=== PATIENT | female | born 1965 | race Caucasian/White ===

== ENCOUNTER 2020-04-09 15:30 | Emergency (ER) | payer SELFPAY ==
[~2020-04-09] VITALS: Ht 160 cm; Wt 68.0 kg
[~2020-04-09 15:30] MED LIST: CLNZ.5T PO; CPR500T PO; ESTR0.3T PO; HYDR1TAB PO; METR500T PO; PROG100C6 PO; SERT50TA PO
--- NOTE | 2020-04-09 15:52 | ED Neurological Problem ---
General Chief Complaint: Neuro-Stroke Like Symptoms Stated Complaint: R ARM NUMBESS History of Present Illness Date Seen by Provider: Apr 09, 2020 Time Seen by Provider: 15:30 Initial Comments 54 year old female presents for parasthesias in her right arm, isolated to right thumb and index finger today. Presents to "find out if I had a stroke" She reports 5 days ago, she had chest pain with nausea, she went to bed and when she woke up, her right arm was numb. It has progressively gotten better. She denies facial drooping or weakness in her LEs. 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 She is morphine dependent and is without insurance at the present time so buys it on the street or from friends. No hx of CAD or other chronic health problems. Timing/Duration: other (5 days) Severity: mild Associated Symptoms: denies symptoms; No confusion, No loss of consciousness, No nausea/vomiting; paresthesia (right thumb and index finger); No slurred speech, No tingling in legs/feet, No trouble walking, No weakness Allergies and Home Medications Allergies Coded Allergies: No Known Drug Allergies (Unverified , 04/09/20) Home Medications Levothyroxine Sodium 150 Mcg Tablet, 150 MCG PO DAILY Prescribed by: TRACY SAVAGE on 04/09/20 4666 Patient Home Medication List Home Medication List Reviewed: Yes Review of Systems Review of Systems Constitutional: no symptoms reported, see HPI : No (hysterectomy) Musculoskeletal: no symptoms reported, see HPI Psychiatric/Neurological: No Symptoms Reported, See HPI All Other Systems Reviewed Negative Unless Noted: Yes Past Xdxslkk-Yszitk-Gsimdv Hx Past Med/Social Hx: Reviewed and Corrections made Patient Social History Recent Foreign Travel: No Contact w/Someone Who Travel: No Past Medical History Endocrine: Yes Hyperthyroidism Physical Exam Vital Signs Vital Signs - First Documented 04/09/20 04/09/20 15:39 18:00 Temp 36.2 Pulse 93 Resp 18 B/P (MAP) 149/83 (105) Pulse Ox 98 O2 Delivery Room Air Capillary Refill : Height, Weight, BMI Height: '" Weight: lbs. oz. kg; BMI Method: General Appearance: WD/WN, no apparent distress, other (no facial drooping) HEENT: PERRL/EOMI, normal ENT inspection, TMs normal, pharynx normal Neck: non-tender, full range of motion, supple, normal inspection Gastrointestinal: normal bowel sounds, non tender, soft, no organomegaly Extremities: normal range of motion, non-tender, normal inspection, normal capillary refill, other (Full resisted Flex/Ext to bilat upper Ext, power V/V. Power LEs V/V. Slight decreased sensation to right thumb, but full active and passive ROM, resisted thumb power V/V. ) Neurologic/Psychiatric: casing sewer II-XII nml as tested, no motor/sensory deficits, alert, normal mood/affect, oriented x 3 Crainal Nerves: normal hearing, normal speech, PERRL; No abnormal speech, No facial asymmetry, No facial droop, No facial paresthesias, No gaze palsy, No tongue deviation to R Coordination/Gait: normal finger to nose, normal gait, negative Romberg's sign Motor/Sensory: no motor deficit, no pronator drift Skin: normal color, warm/dry NIH 0 Stroke Onset of Symptoms Date of Onset of Symptoms: Apr 04, 2020 Time of Symptom Onset: 21:00 NIH Stroke Scale Assessment Select: Initial Level of Consciousness: 0=Alert (0), Level of Consciousness- Questions: 0=Answers both month/age (0), LOC Commands: 0=Performs both tasks (0), Gaze: Normal (0), Visual [place]: 0=No visual loss (0), Facial Movement (Facial Paresis): 0=Normal symmetrical mnt (0), Motor Function-Arms Right: 0=No drift (0), Motor Function-Arms Left: 0=No drift (0), Motor Function-Legs Right: 0=No drift (0), Motor Function-Legs Left: 0=No drift (0), Limb Ataxia: 0=Absent (0), Sensory: 0=Normal:no loss (0), Best Language: 1=Mild to moderat aphasia (1), Dysarthria: 0=Normal (0), Extinction & Inattention: 0=No abnormality (0), Total: 1 Progress/Results/Core Measures Results/Orders Lab Results Laboratory Tests Test 04/09/20 15:45 04/09/20 16:27 Range/Units White Blood Count 11.5 H 4.3-11.0 10^3/uL Red Blood Count 4.89 4.35-5.85 10^6/uL Hemoglobin 13.9 11.5-16.0 G/DL Hematocrit 43 35-52 % Mean Corpuscular Volume 88 80-99 FL Mean Corpuscular Hemoglobin 28 25-34 PG Mean Corpuscular Hemoglobin Concent 33 32-36 G/DL Red Cell Distribution Width 14.7 H 10.0-14.5 % Platelet Count 485 H 130-400 10^3/uL Mean Platelet Volume 9.6 7.4-10.4 FL Neutrophils (%) (Auto) 47 42-75 % Lymphocytes (%) (Auto) 34 12-44 % Monocytes (%) (Auto) 6 0-12 % Eosinophils (%) (Auto) 12 H 0-10 % Basophils (%) (Auto) 1 0-10 % Neutrophils # (Auto) 5.4 1.8-7.8 X 10^3 Lymphocytes # (Auto) 3.9 1.0-4.0 X 10^3 Monocytes # (Auto) 0.7 0.0-1.0 X 10^3 Eosinophils # (Auto) 1.4 H 0.0-0.3 10^3/uL Basophils # (Auto) 0.1 0.0-0.1 10^3/uL Neutrophils % (Manual) 56 % Lymphocytes % (Manual) 28 % Monocytes % (Manual) 6 % Eosinophils % (Manual) 9 % Basophils % (Manual) 1 % Band Neutrophils 0 % Blood Morphology Comment NORMAL Prothrombin Time 12.0 L 12.2-14.7 SEC INR Comment 0.9 0.8-1.4 Activated Partial Thromboplast Time 30 24-35 SEC D-Dimer 0.70 H 0.00-0.49 UG/ML Sodium Level 139 135-145 MMOL/L Potassium Level 3.5 L 3.6-5.0 MMOL/L Chloride Level 104 98-107 MMOL/L Carbon Dioxide Level 23 21-32 MMOL/L Anion Gap 12 5-14 MMOL/L Blood Urea Nitrogen 14 7-18 MG/DL Creatinine 0.97 0.60-1.30 MG/DL Estimat Glomerular Filtration Rate 60 BUN/Creatinine Ratio 14 Glucose Level 99 70-105 MG/DL Calcium Level 10.1 8.5-10.1 MG/DL Corrected Calcium 8.5-10.1 MG/DL Total Bilirubin 0.2 0.1-1.0 MG/DL Aspartate Amino Transf (AST/SGOT) 24 5-34 U/L Alanine Aminotransferase (ALT/SGPT) 21 0-55 U/L Alkaline Phosphatase 102 40-136 U/L Troponin I < 0.028 <0.028 NG/ML Total Protein 9.0 H 6.4-8.2 GM/DL Albumin 4.6 H 3.2-4.5 GM/DL Free Thyroxine 0.59 L 0.70-1.48 NG/DL TSH [place] Testing 92.63 H 0.35-4.94 UIU/ML Urine Color YELLOW Urine Clarity CLEAR Urine pH 6.0 5-9 Urine Specific [place] >=1.030 1.016-1.022 Urine Protein NEGATIVE NEGATIVE Urine Glucose (UA) NEGATIVE NEGATIVE Urine Ketones NEGATIVE NEGATIVE Urine Nitrite NEGATIVE NEGATIVE Urine Bilirubin NEGATIVE NEGATIVE Urine Urobilinogen 0.2 < = 1.0 MG/DL Urine Leukocyte Esterase NEGATIVE NEGATIVE Urine RBC (Auto) NEGATIVE NEGATIVE Urine RBC NONE /HPF Urine WBC RARE /HPF Urine Squamous Epithelial Cells 2-5 /HPF Urine Crystals NONE /LPF Urine Bacteria NEGATIVE /HPF Urine Casts NONE /LPF Urine Mucus NEGATIVE /LPF Urine Culture Indicated NO Urine Opiates Screen POSITIVE H NEGATIVE Urine Oxycodone Screen POSITIVE H NEGATIVE Urine Methadone Screen NEGATIVE NEGATIVE Urine Propoxyphene Screen NEGATIVE NEGATIVE Urine Barbiturates Screen NEGATIVE NEGATIVE Ur Tricyclic Antidepressants Screen NEGATIVE NEGATIVE Urine Phencyclidine Screen NEGATIVE NEGATIVE Urine Amphetamines Screen NEGATIVE NEGATIVE Urine Methamphetamines Screen NEGATIVE NEGATIVE Urine Benzodiazepines Screen POSITIVE H NEGATIVE Urine Cocaine Screen NEGATIVE NEGATIVE Urine Cannabinoids Screen POSITIVE H NEGATIVE My Orders Orders - TRACY SAVAGE Cbc With Automated Diff (04/09/20 15:46) Protime With Inr (04/09/20 15:46) Partial Thromboplastin Time (04/09/20 15:46) Comprehensive Metabolic Panel (04/09/20 15:46) Fibrin Degradation Products (04/09/20 15:46) Troponin I (04/09/20 15:46) Ua Culture If Indicated (04/09/20 15:46) Chest 1 View, Ap/Pa Only (04/09/20 15:46) Ekg Tracing (04/09/20 15:46) Ed Iv/Invasive Line Start (04/09/20 15:46) Ed Iv/Invasive Line Start (04/09/20 15:46) Vital Signs Stroke Patient Q15M (04/09/20 15:46) Ct Head Wo-R/O Stroke (04/09/20 15:46) Monitor-Rhythm Ecg Trace Only (04/09/20 15:46) Dysphagia Screening Tool (04/09/20 15:46) Thyroid Analyzer (04/09/20 15:58) Drug Screen Stat (Urine) (04/09/20 16:04) Manual Differential (04/09/20 15:45) Free T4 (Free Thyroxine) (04/09/20 15:45) Vital Signs/I&O 04/09/20 04/09/20 15:39 18:00 Temp 36.2 36.2 Pulse 93 65 Resp 18 18 B/P (MAP) 149/83 (105) 124/65 (105) Pulse Ox 98 98 O2 Delivery Room Air Progress Progress Note : Time: 15:30 Progress Note Patient seen and evaluated. Will obtain CT, labs and re-evaluate. Encouraged patient to always seek immediate medical attention, if stroke or OR symptoms. Reviewed these with her. Even if Stroke, outside of window for interventions. 1600 CT head reviewed with patient. No acute findings. Awaiting labs. EKG normal. 1645 Troponin negative, significantly elevated TSH and low T4. No symptoms of Myxedema. Will start Synthroid and have her follow up with a PCP. Encouraged she see a PCP to obtain MAT or Rx medications, as she may not know what she is getting on the street or from friends. Discharge instructions and return precautions reviewed with the patient. All questions answered. Initial ECG Impression Date: Apr 09, 2020 Initial ECG Impression Time: 15:35 Initial ECG Rate: 93 Initial ECG Rhythm: Normal Sinus Initial ECG Intervals: Normal Initial ECG Intervals NC 136, QRSD 108, QT 375, QTC 467. [place] P 40, QRS 29, T 46. Initial ECG Impression: Normal Initial ECG Comparisson: No Previous ECG Available Diagnostic Imaging Diagonstic Imaging: CT Comments NAME: SUZANNE LESLIE [facility] REC#: [id number] PT STATUS: REG ER : 1965 PHYSICIAN: TRACY SAVAGE ADMIT DATE: 04/09/20/ER Draft Date of Exam:04/09/20 CT HEAD WO-R/O STROKE PROCEDURE: CT head wo r/o stroke. TECHNIQUE: Multiple contiguous axial images were obtained through the brain without the use of intravenous contrast. Auto Exposure Controls were utilized during the CT exam to meet ALARA standards for radiation dose reduction. INDICATION: Fall with right arm weakness. COMPARISON: No prior studies are available for comparison. FINDINGS: The ventricles and sulci are within normal limits. No sulcal effacement or midline shift is identified. No acute intra-axial or extra-axial hemorrhage is detected. The cisterns are patent. The visualized paranasal sinuses are clear. IMPRESSION: No acute intracranial process is detected. Dictated on workstation # [id number] Dict: 04/09/20 1603 Trans: 04/09/20 1606 [id number] Interpreted by: RUDDY DEVI MD Electronically signed by: Reviewed: Reviewed by Me Diagonstic Imaging: Xray Plain Films/CT/US/NM/MRI: chest Comments NAME: SUZANNE LESLIE [facility] REC#: [id number] PT STATUS: REG ER : 1965 PHYSICIAN: TRACY SAVAGE CARVER HAND ADMIT DATE: 04/09/20/ER Draft Date of Exam:04/09/20 CHEST 1 VIEW, AP/PA ONLY INDICATION: Right hand numbness, chest pain EXAM: Frontal chest obtained at 04:13 p.m. Heart and mediastinal silhouette are normal in appearance. The lungs are clear. There is no pneumothorax or pleural fluid. IMPRESSION: 1. No acute process in the chest. Dictated on workstation # [id number] Dict: 04/09/20 1615 Trans: 04/09/20 1618 [facility] [id number] Interpreted by: FLORENCIO RIOS MD Electronically signed by: Reviewed: Reviewed by Me Departure Impression Primary Impression: Paresthesia of right thumb Additional Impression: Hypothyroidism Qualified Codes: E03.9 - Hypothyroidism, unspecified Disposition: 01 HOME, SELF-CARE Condition: Improved Departure-Patient Inst. Decision time for Depature: 16:45 Referrals: [facility] [place] PHYSICIAN (PCP) Primary Care Physician Patient Instructions: Paresthesias (DC), Hypothyroidism (Underactive Thyroid) (DC) Add. Discharge Instructions: Establish care at [facility] for the numbness and thyroid. Follow up at [facility]. Return to the emergency department for new, urgent health care needs. All discharge instructions reviewed with patient and/or family. Voiced understanding. Scripts Levothyroxine Sodium (Levothyroxine Sodium) 150 Mcg Tablet 150 MCG PO DAILY, #30 TAB 0 Refills Prov: TRACY SAVAGE 04/09/20 TRACY SAVAGE Apr 09, 2020 15:52
--- NOTE | 2020-04-09 16:06 | Diagnostic Imaging Report ---
PROCEDURE: CT head wo r/o stroke. TECHNIQUE: Multiple contiguous axial images were obtained through the brain without the use of intravenous contrast. Auto Exposure Controls were utilized during the CT exam to meet ALARA standards for radiation dose reduction. INDICATION: Fall with right arm weakness. COMPARISON: No prior studies are available for comparison. FINDINGS: The ventricles and sulci are within normal limits. No sulcal effacement or midline shift is identified. No acute intra-axial or extra-axial hemorrhage is detected. The cisterns are patent. The visualized paranasal sinuses are clear. IMPRESSION: No acute intracranial process is detected. Dictated by: Dictated on workstation # [id number]
[2020-04-09 16:15] LABS: BASOPHILS # (AUTO) 0.1 10^3/uL (0.0-0.1); BASOPHILS % (AUTO) 1 % (0-10); EOSINOPHILS # (AUTO) 1.4 10^3/uL (0.0-0.3); EOSINOPHILS % (AUTO) 12 % (0-10); HEMATOCRIT 43 % (35-52); HEMOGLOBIN 13.9 G/DL (11.5-16.0); LYMPHOCYTES # (AUTO) 3.9 X 10^3 (1.0-4.0); LYMPHOCYTES % (AUTO) 34 % (12-44); MEAN CORPUSCULAR HEMOGLOBIN 28 PG (25-34); MEAN CORPUSCULAR HGB CONC 33 G/DL (32-36); MEAN CORPUSCULAR VOLUME 88 FL (80-99); MEAN PLATELET VOLUME 9.6 FL (7.4-10.4); MONOCYTES # (AUTO) 0.7 X 10^3 (0.0-1.0); MONOCYTES % (AUTO) 6 % (0-12); NEUTROPHILS # (AUTO) 5.4 X 10^3 (1.8-7.8); NEUTROPHILS % (AUTO) 47 % (42-75); PLATELET COUNT 485 10^3/uL (130-400); RED CELL DISTRIBUTION WIDTH 14.7 % (10.0-14.5); WHITE BLOOD COUNT 11.5 10^3/uL (4.3-11.0)
--- NOTE | 2020-04-09 16:18 | Diagnostic Imaging Report ---
INDICATION: Right hand numbness, chest pain EXAM: Frontal chest obtained at 04:13 p.m. Heart and mediastinal silhouette are normal in appearance. The lungs are clear. There is no pneumothorax or pleural fluid. IMPRESSION: 1. No acute process in the chest. Dictated by: Dictated on workstation # [id number]
[2020-04-09 16:33] LABS: ALANINE AMINOTRANSFERASE 21 U/L (0-55); ALBUMIN 4.6 GM/DL (3.2-4.5); ALKALINE PHOSPHATASE 102 U/L (40-136); BILIRUBIN,TOTAL 0.2 MG/DL (0.1-1.0); BUN/CREATININE RATIO 14; CALCIUM 10.1 MG/DL (8.5-10.1); CARBON DIOXIDE 23 MMOL/L (21-32); CHLORIDE 104 MMOL/L (98-107); CREATININE SERUM 0.97 MG/DL (0.60-1.30); GFR ESTIMATED 60; GLUCOSE 99 MG/DL (70-105); POTASSIUM 3.5 MMOL/L (3.6-5.0); SODIUM 139 MMOL/L (135-145)
[2020-04-09 16:39] LABS: FIBRIN DEGRADATION PRODUCTS 0.7 UG/ML (0.00-0.49); INR 0.9 (0.8-1.4)
[2020-04-09 16:47] LABS: BILIRUBIN,URINE NEGATIVE (NEGATIVE); CLARITY,URINE CLEAR; COLOR,URINE YELLOW; GLUCOSE, URINE (UA) NEGATIVE (NEGATIVE); KETONES,URINE NEGATIVE (NEGATIVE); LEUKOCYTE ESTERASE ,URINE NEGATIVE (NEGATIVE); NITRITE,URINE NEGATIVE (NEGATIVE); PROTEIN,URINE NEGATIVE (NEGATIVE)
[2020-04-09 16:48] LABS: BACTERIA,URINE NEGATIVE /HPF; WBC,URINE RARE /HPF
[2020-04-09 16:53] LABS: TSH (THYROID ANALYZER) 92.63 UIU/ML (0.35-4.94)
[2020-04-09 16:54] LABS: AMPHETAMINE SCREEN, URINE NEGATIVE (NEGATIVE); BARBITURATE SCREEN URINE NEGATIVE (NEGATIVE); BENZODIAZEPINES SCREEN URINE POSITIVE (NEGATIVE); CANNABINOID SCREEN, URINE POSITIVE (NEGATIVE); COCAINE SCREEN URINE NEGATIVE (NEGATIVE); METHADONE STAT NEGATIVE (NEGATIVE); METHAMPHETAMINE SCREEN URINE S NEGATIVE (NEGATIVE); OPIATE SCREEN URINE POSITIVE (NEGATIVE); OXYCODONE STAT POSITIVE (NEGATIVE); PROPOXYPHENE STAT NEGATIVE (NEGATIVE); TRICYCLIC ANTIDEPRESSANTS SCRE NEGATIVE (NEGATIVE)
[2020-04-09 16:58] LABS: BAND NEUTROPHILS 0 %; BASOPHILS % (MANUAL) 1 %; EOSINOPHILS % (MANUAL) 9 %; LYMPHOCYTES % (MANUAL) 28 %; MONOCYTES % (MANUAL) 6 %; NEUTROPHILS % (MANUAL) 56 %; RBC MORPH NORMAL
[2020-04-09 17:26] LABS: FREE T4 (FREE THYROXINE) 0.59 NG/DL (0.70-1.48)
[2020-04-09] MEDS ORDERED: LEVO150T6 PO (17:48)
[2020-04-09 18:00] VITALS: BP 124/65
--- OUTSIDE RECORDS SUMMARY | 2020-04-09 18:48 | XMS REPORT | Continuity of Care Document ---
Demographics Preferred Language Unknown Marital Status Unknown [place] Affiliation Unknown Race Unknown Ethnic Group Unknown Author Organization Unknown Address Unknown Phone Unavailable Allergies There is no data. Medications There is no data. Problems There is no data. Procedures There is no data. Results Test Result Range Complete blood count (CBC) with automate d white blood cell (WBC) differential - 04/09/20 15:45 Blood leukocytes automated count (number/volume) 11.5 10*3/uL 4.3-11.0 Blood erythrocytes automated count (number/volume) 4.89 10*6/uL 4.35-5.85 Venous blood hemoglobin measurement (mass/volume) 13.9 g/dL 11.5-16.0 Blood hematocrit (volume fraction) 43 % 35-52 Automated erythrocyte mean corpuscular volume 88 [ foz_us] 80-99 Automated erythrocyte mean corpuscular h emoglobin (mass per erythrocyte) 28 pg 25-34 Automated erythrocyte mean corpuscular h emoglobin concentration measurement (mass/volume) 33 g/dL 32-36 Automated erythrocyte distribution width ratio 14. 7 % 10.0- 14.5 Automated blood platelet count (count/volume) 485 10*3/uL 130-400 Automated blood platelet mean volume measurement 9.6 [foz_us] 7.4-10.4 Automated blood neutrophils/100 leukocytes 47 % 42-75 Automated blood lymphocytes/100 leukocytes 34 % 12-44 Blood monocytes/100 leukocytes 6 % 0-12 Automated blood eosinophils/100 leukocytes 12 % 0-10 Automated blood basophils/100 leukocytes 1 % 0-10 Blood neutrophils automated count (number/volume) 5.4 10*3 1.8-7.8 Blood lymphocytes automated count (number/volume) 3.9 10*3 1.0-4.0 Blood monocytes automated count (number/volume) 0. 7 10*3 0.0-1.0 Automated eosinophil count 1.4 10*3/uL 0 .0-0.3 Automated blood basophil count (count/volume) 0.1 10*3/uL 0.0-0.1 Comprehensive metabolic panel - 04/09/20 15:45 Serum or plasma sodium measurement (moles/volume) 139 mmol/L 135-145 Serum or plasma potassium measurement (moles/volume) 3.5 mmol/L 3.6-5.0 Serum or plasma chloride measurement (moles/volume) 104 mmol/L 98-107 Carbon dioxide 23 mmol/L 21-32 Serum or plasma anion gap determination (moles/volume) 12 mmol/L 5-14 Serum or plasma urea nitrogen measurement (mass/volume ) 14 mg/dL 7-18 Serum or plasma creatinine measurement (mass/volume) 0.97 mg/dL 0.60-1.30 Serum or plasma urea nitrogen/creatinine mass ratio 14 NRG Serum or plasma creatinine measurement w ith calculation of estimated glomerular filtration rate 60 NRG Serum or plasma glucose measurement (mass/volume) 99 mg/dL 70-105 Serum or plasma calcium measurement (mass/volume) 10.1 mg/dL 8.5-10.1 Serum or plasma total bilirubin measurement (mass/volu me) 0.2 mg/dL 0.1-1.0 Serum or plasma alkaline phosphatase glen surement (enzymatic activity/volume) 102 U/L 40-136 Serum or plasma aspartate aminotransfera se measurement (enzymatic activity/volume) 24 U/L 5-34 Serum or plasma alanine aminotransferase measurement (enzymatic activity/volume) 21 U/L 0-55 Serum or plasma protein measurement (mass/volume) 9.0 g/dL 6.4-8.2 Serum or plasma albumin measurement (mass/volume) 4.6 g/dL 3.2-4.5 PT panel in platelet poor plasma by coag ulation assay - 04/09/20 15:45 Prothrombin time (PT) in platelet poor plasma by coagu lation assay 12.0 s 12.2-14.7 INR in platelet poor plasma or blood by coagulation as say 0.9 0.8-1.4 Activated partial thromboplastin time (a PTT) in platelet poor plasma bycoagulation assay - 04/09/20 15:45 Activated partial thromboplastin time (a PTT) in platelet poor plasma bycoagulation assay 30 s 24-35 Fibrin D-dimer FEU measurement in platel et poor plasma (mass/volume) - 04/09/20 15:45 Fibrin D-dimer FEU measurement in platelet poor plasma (mass/volume) 0.70 ug/mL 0.00-0.49 Serum or plasma troponin i.cardiac measu rement (mass/volume) - 04/09/20 15:45 Serum or plasma troponin i.cardiac measurement (mass/v olume) < ng/mL <0.028 Serum or plasma thyroxine (T4) free dara urement (mass/volume) - 04/09/20 15:45 Serum or plasma thyroxine (T4) free measurement (mass/ volume) 0.59 ng/dL 0.70-1.48 Manual absolute plasma cell count - 03/25 04/13 15:45 Blood monocytes/100 leukocytes 6 % NRG Manual blood segmented neutrophils/100 leukocytes 56 % NRG Blood band neutrophils/100 leukocytes 0 % NRG Manual blood lymphocytes/100 leukocytes 28 % NRG Manual eosinophils/100 leukocytes in nose 9 % NRG Manual blood basophils/100 leukocytes 1 % NRG Blood erythrocyte morphology finding identification NORMAL NRG Serum or plasma thyrotropin measurement by detection limit <=0.05 miu/l (units/volume) - 04/09/20 15:45 Serum or plasma thyrotropin measurement by detection limit <=0.05 miu/l (units/volume) 92.63 u[iU]/mL 0.35-4.94 Complete urinalysis with reflex to cultu re - 04/09/20 16:27 Urine color determination YELLOW NRG Urine clarity determination CLEAR NR G Urine pH measurement by test strip 6.0 5-9 Specific gravity of urine by test strip >= 1.016-1.022 Urine protein assay by test strip, semi-quantitative NEGATIVE NEGATIVE Urine glucose detection by automated test strip NE GATIVE NEGATIVE Erythrocytes detection in urine sediment by light micr oscopy NEGATIVE NEGATIVE Urine ketones detection by automated test strip NE GATIVE NEGATIVE Urine nitrite detection by test strip NEGATIVE NEGATIVE Urine total bilirubin detection by test strip NEGA TIVE NEGATIVE Urine urobilinogen measurement by automated test strip (mass/volume) 0.2 mg/dL < = 1.0 Urine leukocyte esterase detection by dipstick NEG ATIVE NEGATIVE Automated urine sediment erythrocyte cou nt by microscopy (number/high power field) NONE NRG Automated urine sediment leukocyte count by microscopy (number/high power field) RARE NRG Bacteria detection in urine sediment by light microsco py NEGATIVE NRG Squamous epithelial cells detection in u rine sediment by light microscopy 2-5 NRG Crystals detection in urine sediment by light microsco py NONE NRG Casts detection in urine sediment by light microscopy NONE NRG Mucus detection in urine sediment by light microscopy NEGATIVE NRG Complete urinalysis with reflex to culture NO NRG Urine drug screening test - 04/09/20 16: 27 Urine phencyclidine detection by screening method NEGATIVE NEGATIVE Urine benzodiazepines detection by screening method POSITIVE NEGATIVE Urine cocaine detection NEGATIVE NEGATI VE Urine amphetamines detection by screening method N EGATIVE NEGATIVE Urine methamphetamine detection by screening method NEGATIVE NEGATIVE Urine cannabinoids detection by screening method P OSITIVE NEGATIVE Urine opiates detection by screening method POSITI VE NEGATIVE Urine barbiturates detection NEGATIVE N EGATIVE Screening urine tricyclic antidepressants detection NEGATIVE NEGATIVE Urine methadone detection by screening method NEGA TIVE NEGATIVE Urine oxycodone detection POSITIVE NEGA TIVE Urine propoxyphene detection NEGATIVE N EGATIVE Encounters ACCT No. Visit Date/Time Discharge Status Pt. Type Provider Facility Loc./Unit Complaint [id number] 04/09/2020 16:16:00 Document Registration
== END 2020-04-09 18:02 | disposition home or self-care (01) ==
LOC: MERGE 15:33 → ER 15:33
DX: R20.2 Paresthesia of skin (principal); E03.9 Hypothyroidism, unspecified; Z79.890 Hormone replacement therapy
CPT/HCPCS: 36415; 70450; 71045; 80053; 80306; 81000; 84439; 84443; 84484; 85007; 85027; 85379; 85610; 85730; 93005; 93041

== ENCOUNTER 2021-07-30 09:41 | Emergency (ER) | payer SELFPAY ==
[~2021-07-30] VITALS: Ht 170 cm; Wt 63.0 kg
[~2021-07-30 09:41] MED LIST changes: +LEVO150T6 PO
--- OUTSIDE RECORDS SUMMARY | 2021-07-30 09:47 | XMS REPORT ---
Author Author [facility] Address Unknown Phone Unavailable Care Team Providers Care Hydrographer Name Role Phone ADDIS NEAL Unavailable PROBLEMS Type Condition ICD9-CM Code [id number] Code Onset Dates Condition S tatus W/U Status Risk SNOMED Code Notes Problem Hypothyroidism, unspecified type E03.9 Active conf irmed [id number] Problem Drug abuse F19.10 Active confirmed [id number] Problem Other chronic pain G89.29 Active confirmed 8 [id number] ALLERGIES No Known Allergies ENCOUNTERS from 1965 to 2021-07-08 Encounter Location Date Provider Diagnosis [facility] [address] [facility] [id number] [place] [address] Jul, ADDIS NEAL IMMUNIZATIONS No Information SOCIAL HISTORY Sex Assigned At : Social History Observation Description Sex Assigned At Unknown Alcohol Screen (Audit-C) Question Answer Notes Did you have a drink containing alcohol in the past year? No Points 0 Interpretation Negative PHQ2 Question Answer Notes In the last 2 weeks, how often have you had little interest or pleasure in doing things? Not at all In the last 2 weeks, how often have you been feeling down, depressed, or hopeless? Not at all Total PHQ2 Score 0 REASON FOR REFERRAL No Information VITAL SIGNS No information MEDICATIONS Medication SIG (Take, Route, Frequency, Duration) Notes Start Da te End Date Status Aspirin 325 MG 1 tablet Orally Once a day Active Levothyroxine Sodium 150 MCG 1 tablet in the morning o n an empty stomach Orally Once a day for 30 days Jun, Active PROCEDURES No Information RESULTS No Results REASON FOR VISIT No Information MEDICAL (GENERAL) HISTORY Type Description Date Surgical History tubal ligation Surgical History elbow sugery Surgical History back surgery x 3 Hospitalization History surgery Hospitalization History child Goals Section No Information Health Concerns No Information MEDICAL EQUIPMENT No Information MENTAL STATUS No Information FUNCTIONAL STATUS No Information ASSESSMENTS No Information PLAN OF TREATMENT Medication Medication Name Sig Start Date Stop Date Levothyroxine Sodium 150 MCG 1 tablet in the morning o n an empty stomach Orally Once a day for 30 days Jun, Next Appt Details Provider Name:PROPSER MACEDO, 2021-08- 5 02:20:00 PM, [address] [facility], [id number], [place], [address], Insurance Providers Payer Name Payer Address Payer Phone Insured Name Patient Relati onship to Insured Coverage Start Date Coverage End Date [employer] [facility]a E [facility] [id number] Flori Dominguez 2020 2020
--- OUTSIDE RECORDS SUMMARY | 2021-07-30 09:47 | XMS REPORT ---
Author Author [facility] Address Unknown Phone Unavailable Care Team Providers Care Crawler Dragline Operator Name Role Phone Migration, Doctor Unavailable Unavailable PROBLEMS Type Condition ICD9-CM Code [id number] Code Onset Dates Condition S tatus W/U Status Risk SNOMED Code Notes Problem Hypothyroidism, unspecified type E03.9 Active conf irmed [id number] Problem Drug abuse F19.10 Active confirmed [id number] Problem Other chronic pain G89.29 Active confirmed [id number] ALLERGIES No Known Allergies ENCOUNTERS from 1965 to 2021-07-10 Encounter Location Date Provider Diagnosis [facility] [address] [facility] [id number] [place] [address] Mar, Doctor Migration IMMUNIZATIONS No Information SOCIAL HISTORY Sex Assigned [...] REASON FOR REFERRAL No Information VITAL SIGNS Height 66 in Mar, Weight 130 lbs Mar, Heart Rate 100 bpm Mar, Respiratory Rate 20 bpm Mar, Blood pressure systolic 102 mmHg Mar, Blood pressure diastolic 74 mmHg Mar, MEDICATIONS Medication SIG (Take, Route, Frequency, Duration) [...] 30 days Jun, Next Appt Details Provider Name:PROSPER MACEDO, 2020-11-1 5 02:20:00 PM, [address] [facility], [id number], [place], [address], Insurance Providers Payer Name Payer Address Payer Phone Insured Name Patient Relati onship to Insured Coverage Start Date Coverage End Date [employer] Reyna E TRUNG [facility] [id number] Flori Dominguez 2020 2020
--- OUTSIDE RECORDS SUMMARY | 2021-07-30 09:47 | XMS REPORT ---
Author Author [facility] Address Unknown Phone Unavailable Care Team Providers Care Sign Poster Name Role Phone GURPREET ACOSTA Unavailable PROBLEMS Type Condition ICD9-CM Code NRW83-AC Code Onset Dates Condition S tatus W/U Status Risk SNOMED Code Notes Problem Hypothyroidism, unspecified type E03.9 Active conf irmed [id number] Problem Drug abuse F19.10 Active confirmed [id number] Problem Other chronic pain G89.29 Active confirmed 8 [id number] ALLERGIES No Known Allergies ENCOUNTERS from 1965 to 2021-07-12 Encounter Location Date Provider Diagnosis [facility] [address] [facility] [id number] [place] [address] Jan, GURPREET KARLA IMMUNIZATIONS No Information SOCIAL HISTORY Sex Assigned [...] Jun, Next Appt Details Provider Name:PROSPER MACEDO, 2021-08-25 5 02:20:00 PM, [address] [facility], [id number], [place], [address], Insurance Providers Payer Name Payer Address Payer Phone Insured Name Patient Relati onship to Insured Coverage Start Date Coverage End Date [employer] Reyna E TRUNG [facility] [id number] Flori Dominguez 2020 2020
[2021-07-30] MEDS ORDERED: TETRACAINE 0.5% OPHTH SOLN 4 ML BTL (SINGLE DOSE ONLY) OU ONE (10:30)
[2021-07-30] MEDS ORDERED: FLUORESCEIN (FLUOR-I-STRIPS) 1 MG STRP OU ONE (10:30)
--- NOTE | 2021-07-30 10:34 | ED EENT ---
History of Present Illness General Chief Complaint: Eye Problems Stated Complaint: L EYE SCRATCHED Source: patient Exam Limitations: no limitations History of Present Illness Date Seen by Provider: Jul 30, 2021 Time Seen by Provider: 10:25 Initial Comments Patient is a 56-year-old female who presents to the emergency department with a chief complaint of left eye pain, foreign body sensation. Patient states her dog "hit me in my eye" last night. She went to bed fine but woke up this morning with the above-stated symptoms. She states she had quite an excessive amount of tearing. She feels a little blurry, she does wear reading glasses. Last tetanus shot was less than 5 years ago. All other review of systems reviewed and negative except as stated. Timing/Duration: abrupt Location: eye (L) Prearrival Treatment: no prearrival treatment Associated Symptoms: denies symptoms Allergies and Home Medications Allergies Coded Allergies: No Known Drug Allergies (Unverified , 07/05/11) Patient Home Medication List Home Medication List Reviewed: Yes Levothyroxine Sodium (Levothyroxine Sodium) 150 Mcg Tablet, 150 MCG PO DAILY Prescribed by: TRACY SAVAGE on 04/09/20 1748 Progesterone,Micronized (Progesterone) 100 Mg Capsule, 100 MG PO, (Reported) Entered as Reported by: LIZZY BARNETT on 04/08/12 1227 Sertraline Hcl (Zoloft) 50 Mg Tablet, 200 MG PO ONCE, (Reported) Entered as Reported by: LIZZY BARNETT on 04/08/12 1227 Review of Systems Review of Systems Constitutional: see HPI Eyes: Blurred Vision, Foreign Body Sensation, Pain, Other (tearing) Ears: No Symptoms Reported Nose: no symptoms reported Mouth: no symptoms reported Throat: no symptoms reported Respiratory: no symptoms reported Cardiovascular: no symptoms reported Musculoskeletal: no symptoms reported Skin: no symptoms reported Neurological: No Symptoms Reported All Other Systems Reviewed Negative Unless Noted: Yes Past Xizeser-Hiezat-Fnhcdi Hx Past Medical History [employer] History: Menopausal Chronic Back Pain Depression Physical Exam Height, Weight, BMI Height: '" Weight: lbs. oz. kg; BMI Method:Stated General Appearance: WD/WN, no apparent distress Eyes: left eye corneal abrasion, left eye lid inflammation (mild); bilateral eye normal inspection, bilateral eye PERRL, bilateral eye EOMI Nose: normal inspection Cardiovascular: regular rate, rhythm Respiratory: no respiratory distress, no accessory muscle use Neurologic/Psychiatric: alert, normal mood/affect, oriented x 3 Skin: normal color, warm/dry Procedures/Interventions Eye : Location: left eye Anesthesia (gtts): Tetracaine Progress/Procedure Conclusion slit lamp exam competed. obvious very small 1-2mm corneal abrasion at the 1 o'clock position at the juncture of the sclera and iris. Progress/Results/Core Measures Results/Orders My Orders Orders - YANIRA LOPEZ MD Balanced Salt Irrigation Soln (Bss Irrig (07/30/21 10:45) Departure Impression Primary Impression: Corneal abrasion Qualified Codes: S05.02XA - Injury of conjunctiva and corneal abrasion without foreign body, left eye, initial encounter Disposition: HOME, SELF-CARE Condition: Stable Departure-Patient Inst. Decision time for Depature: 11:10 [address]: [facility] (PCP) Primary Care Physician PROSPER MACEDO (Family) Primary Care Physician Patient Instructions: Corneal Abrasion (DC) Add. Discharge Instructions: Keep the eye moist with drops throughout the day today. Use the antibiotic drops as prescribed. If you have worsening eye pain/blurry vision/eye drainage, fever or significant vision change please come back to the emergency room for reevaluation. Follow-up with a local eye doctor for a complete vision exam. Scripts Polymyxin B Sulf/Trimethoprim (Polytrim Eye Drops) 10 Ml Drops 10 ML OP Q3HR for 5 Days, #10 DROPS 1 drop to left eye every 3 hours while awake for 5 days Prov: YANIRA LOPEZ MD 07/30/21 Images Eye 1 - Dye uptake (fluorescein) YANIRA LOPEZ MD Jul 30, 2021 10:34
[2021-07-30] MEDS ORDERED: BSS 15 ML IR ONE (10:45)
[2021-07-30] MEDS ORDERED: POLY10DR OP (11:15)
[2021-07-30 11:29] VITALS: BP 124/66
== END 2021-07-30 11:25 | disposition home or self-care (01) ==
LOC: EDUNIT# 09:41 → ER 09:43
DX: S05.02XA Injury of conjunctiva and corneal abrasion without foreign body, left eye, initial encounter (principal); F32.9 Major depressive disorder, single episode, unspecified; Z79.899 Other long term (current) drug therapy; W54.1XXA Struck by dog, initial encounter
CPT/HCPCS: 99281